=== PATIENT | male | born 1955 | race Caucasian/White ===

== ENCOUNTER 2017-06-23 13:49 | Emergency (ER) | payer MEDICARE, OTHER ==
[2017-06-23 14:25] LABS: HEMOGLOBIN 13.5 gm/dL (13.2-17.3); MEAN CELL VOLUME 94.1 fl (80-99); MEAN CORPUSCULAR HEMOGLOBIN 31.8 pg (26.0-30.0); MEAN CORPUSCULAR HGB CONC 33.8 pg (28.0-36.0); MEAN PLATELET VOLUME 6.6 fl; PLATELET COUNT 262 Th/cmm (150-400); RED BLOOD COUNT 4.25 Mil/cmm (4.30-5.70); RED CELL DISTRIBUTION WIDTH 12.2 % (11.5-20.0); WHITE BLOOD COUNT 9.4 Th/cmm (4.8-10.8)
--- NOTE | 2017-06-23 14:34 | ED Physician Chart ---
Chief Complaint/HPI - Patient Information Date Seen:: 06/23/17 Time Seen:: 14:12 Chief Complaint:: BACK PAIN History of Present Illness:: THIS IS A 62 YO MALE WITH RECURRENT BACK PAIN Allergies:: Allergies Allergy/AdvReac Type Severity Reaction Status Date / Time No Known Allergies Allergy Verified 06/23/17 13:59 Vitals:: Vital Signs - 8 hr 06/23/17 14:01 Temp 98.1 F HR 67 RR 17 BP 117/62 O2 Sat % 100 Historian:: Patient Review:: Nurse's Note Reviewed Review of Systems - Review of Systems General/Constitutional: No fever, No chills, No weight loss, No weakness, No diaphoresis, No edema, No loss of appetite Skin: No skin lesions, No rash, No bruising Head: No headache, No light-headedness Eyes: No loss of vision, No pain, No diplopia ENT: No earache, No nasal drainage, No sore throat, No tinnitus Neck: No neck pain, No swelling, No thyromegaly, No stiffness, No mass noted Cardio Vascular: No chest pain, No palpitations, No PND, No orthopnea, No edema Pulmonary: No SOB, No cough, No sputum, No wheezing GI: No nausea, No vomiting, No diarrhea, No pain, No melena, No hematochezia, No constipation, No hematemesis G/U: No dysuria, No frequency, No hematuria Musculoskeletal: Bone or joint pain, Back pain, No muscle pain Endocrine: No polyuria, No polydipsia Psychiatric: No prior psych history, No depression, No anxiety, No suicidal ideation Hematopoietic: No bruising, No lymphadenopathy Allergic/Immuno: No urticaria, No angioedema Neurological: No syncope, No focal symptoms, No weakness, No paresthesia, No headache, No seizure, No dizziness, No confusion, No vertigo Past Medical History - Past Medical History Obtainable: Yes Past Medical History: No significant medical hx, Arthritis Family History: None Social History: Non Smoker, No Alcohol, No Drug Use Surgical History: other (BACK SURGERY.) Family Medical History - Family Member Mother History Unknown: Yes Physical Exam - Physical Examination General/Constitutional: Awake, Well-developed, well-nourished, Alert, No distress, GCS 15, Non-toxic appearing, Ambulatory Head: Atraumatic Eyes: Lids, conjuctiva normal, PERRL, EOMI Skin: Nl inspection, No rash, No skin lesions, No ecchymosis, Well hydrated, No lymphadenopathy ENMT: External ears, nose nl, Nasal exam nl, Lips, teeth, gums nl Neck: Nontender, Full ROM w/o pain, No JVD, No nuchal rigidity, No bruit, No mass, No stridor Respiratory: Nl effort/Exclusion, Clear to Auscultation, No Wheeze/Rhonchi/Rales Cardio Vascular: RRR, No murmur, gallop, rubs, NL S1 S2 GI: No tenderness/rebounding/guarding, No organomegaly, No hernia, Normal BS's, Nondistended, No mass/bruits, No McBurney tenderness : No CVA tenderness Extremities: No tenderness or effusion, Full ROM, normal strength in all extremities, No edema, Normal digits & nails Neuro/Psych: Alert/oriented, DTR's symmetric, Normal sensory exam, Normal motor strength, Judgement/insight normal, Mood normal, Normal gait, No focal deficits Misc: No paraspinal tenderness Other Misc comments:: THIS PATIENT HAS TENDERNESS OF THE L 4, S1 AREA TENDERNESS PAINFUL BUT NORMAL ROM. Labs/Radiology/EKG Results - Lab Results Results: Laboratory Tests 06/23/17 14:16 WBC 9.4 RBC 4.25 L Hgb 13.5 Hct 40.0 MCV 94.1 MCH 31.8 H MCHC Differential 33.8 RDW 12.2 Plt Count 262 MPV 6.6 - Radiology Results Results: ST SCAN OF THE LS SPINE = DEGENERATIVE ARTHRITI AND EVIDENCE OF OLD SURGERY. Assessment - Assessment General Assessment: CHRONIC BACK PAIN ED Septic Shock - . Is Septic Shock (SBP<90, OR Lactate>4 mmol\L) present?: No - <6hrs of presentation: Vital Signs: Vital Signs - 8 hr 06/23/17 14:01 Temp 98.1 F HR 67 RR 17 BP 117/62 O2 Sat % 100 Reassessment (Disposition) - Diagnosis Diagnosis:: LUMBOSACRAL DISC DISEASE - Aftercare/Follow up Instructions Aftercare/Follow-Up Instructions:: Counseled pt regarding lab results/diagnosis & need follow up, Refer to Discharge Instructions, Counseled pt & family regarding lab results/diagnosis & need follow up - Patient Disposition Discharge/Transfer:: Home Condition at Disposition:: Improved ED Discharge Plan - Patient Disposition Admit/Discharge/Transfer: PT DISCHARGED HOME Condition at Disposition: Improved
[2017-06-23 14:40] LABS: CHOLESTEROL 178 mg/dL (<200); TRIGLYCERIDES 86 mg/dL (<150)
[2017-06-23 14:42] LABS: ALB/GLOB RATIO 1.8 (1.0-1.8); ALKALINE PHOSPHATASE 47 U/L (34-104); ANION GAP 10.1 (7.0-16.0); BILIRUBIN,TOTAL 1.2 mg/dL (0.3-1.0); BUN - UREA NITROGEN 12 mg/dL (7-25); CALCIUM SERUM 9.6 mg/dL (8.6-10.3); CARBON DIOXIDE 26.5 mEq/L (21.0-31.0); CHLORIDE 94 mEq/L (98-107); CREATININE - SERUM 1.2 mg/dL (0.7-1.3); GLUCOSE 133 mg/dL (70-105); POTASSIUM SERUM 3.6 mEq/L (3.5-5.1); SGOT 10 U/L (13-39); SGPT/ALT 8 U/L (7-52); SODIUM SERUM 127 mEq/L (136-145)
[2017-06-23 14:45] LABS: INR 0.98 (0.5-1.4); PROTHROMBIN TIME (TEST) 10.2 SECONDS (9.5-11.5)
--- NOTE | 2017-06-23 15:00 | Diagnostic Imaging Report ---
CT lumbar spine without IV contrast HISTORY: Back pain COMPARISON: None Technique: Axial images were obtained from the lower thoracic spine to the upper sacrum without IV contrast. Reconstructions were made. total DLP: [id number], [id number] Findings: Images of the lumbar spine obtained without contrast demonstrate postsurgical changes with evidence of previous laminectomies at L4 and L5. Extensive degenerative changes are seen with multilevel disc bulges most pronounced at L4/L5 with advanced disc space loss of height at this level and disc osteophyte complex asymmetric to the left at this level measuring 4 to 5 mm. There is mild spinal canal narrowing. There is moderate right and severe left neural foraminal narrowing at this level. There are also severe bilateral neural foraminal narrowing at L5/S1. There is mild spinal scoliosis. There is hemisacralization of L5 on the right side. No evidence of an acute fracture or subluxation. Degenerative changes of the SI joints are noted. A gallstone is incidentally noted. Mild atherosclerotic vascular disease is noted. IMPRESSION: No evidence of acute fracture or subluxation Extensive degenerative changes most pronounced at L4/L5. There is evidence of laminectomies at L4/L5. There is moderate spinal canal and severe left and moderate right neural foraminal narrowing at this level. Additional severe bilateral neural foraminal narrowing at L5/S1. Gallstones Atherosclerotic vascular disease. If indicated follow up MRI may be obtained for further assessment.
[2017-06-23 15:01] LABS: NEUTROPHILS 87 % (40-80); PLATELET ESTIMATE ADEQUATE (NORMAL); TOTAL CELLS COUNTED 100
== END 2017-06-23 15:20 | disposition home or self-care (01) ==
LOC: ER 13:49
DX: M53.87 Other specified dorsopathies, lumbosacral region (principal); G89.29 Other chronic pain; M54.5 Low back pain
CPT/HCPCS: 99285; 96372; 72131; 84484; 36415; 84443; 86592; 85007; 85027; 85610; 85730; 80053; 80061; J1885